=== PATIENT | male | born 1955 | race Caucasian/White ===

== ENCOUNTER 2018-11-15 08:00 | Outpatient (CLI) | payer OTHER ==
--- NOTE | 2018-11-15 08:46 | RAD ---
CHEST TWO VIEWS: HISTORY: Renal calculi. Preoperative exam. COMPARISON: None. FINDINGS: There are sternotomy wires. Normal cardiac silhouette. Pulmonary vessels and hilum are normal. Cos tophrenic angles are clear. No mass. No consolidation. No pneumothorax or osseous abnormalities. IMPRESSION: No acute cardiopulmonary process. POS: [facility]
== END 2018-11-15 08:01 | disposition home or self-care (01) ==
LOC: BICRAD 08:00
PROVIDERS: ATTEND Urology
DX: N20.0 Calculus of kidney (principal)
CPT/HCPCS: 71046

== ENCOUNTER 2020-03-31 19:42 | Observation (INO) | payer OTHER ==
[2020-03-31 21:02] LABS: PTT 25.4 sec (22.9-36.1); Prothrombin Time 13.2 sec (12.0-14.7)
[2020-03-31 21:16] LABS: ALT (SGPT) 13 U/L (8-55); AST (SGOT) 14 U/L (5-34); Albumin 3.7 g/dL (3.4-4.8); Alkaline Phosphatase 61 U/L (40-110); Anion Gap 14 mmol/L (10-20); BUN (Urea Nitrogen) 23 mg/dL (8.4-25.7); Bilirubin, Total 0.6 mg/dL (0.2-1.2); Calc. Creatinine Clearance 0 mL/min (70-130); Carbon Dioxide 23 mmol/L (23-31); Chloride 106 mmol/L (98-107); Estimated GFR-MDRD 74; Globulin 2.7 g/dL (2.4-3.5); Glucose 153 mg/dL (80-115); Lipase 18 U/L (8-78); Protein, Total 6.4 g/dL (5.8-8.1); Sodium 139 mmol/L (136-145)
--- NOTE | 2020-03-31 21:30 | RAD ---
Acute abdominal series INDICATION: Concern for lap band displacement COMPARISON: Abdominal radiograph dated September 18, 2019 FINDINGS: CHEST: LUNGS: Clear. Cardiomediastinal silhouette: There midline sternotomy changes and prior CABG change. Pleural effusion or pneumothorax: Negative. Pneumoperitoneum: Negative. ABDOMEN: Bowel gas pattern: Unobstructed. Abnormal calcifications: There is bilateral nephrolithiasis. The extent of the disease burden appears slightly more pronounced in the right kidney but slightly less pronounced in the left kidney. Osseous structures: There is scattered degenerative and osteoarthritic change present. Additional findings: The laparoscopic gastric band projects in the expected position does not appear appreciably changed in position from the comparison. IMPRESSION: 1. Laparoscopic gastric band projects in expected position and does not appear appreciably changed fr om the comparison study in 2019. 2. Bilateral nephrolithiasis
[2020-03-31] MEDS ORDERED: Morphine 4 MG/ML VIAL ONE (22:09)
[2020-03-31] MEDS ORDERED: Ondansetron PF 4 MG/2 ML Vial IVP PRN (23:20)
[2020-04-01 01:12] VITALS: BMI 32.5
[2020-04-01] MEDS: Sodium Chloride 0.9% 1,000 ML IV SCH ×2 (01:50→10:02)
[2020-04-01 10:44] VITALS: BP 134/83; TEMP 98
[2020-04-01] MEDS ORDERED: Nitroglycerin 0.4 MG TAB (25 Tab Bottle) SL PRN (13:10)
[2020-04-01 14:22] LABS: #Lymphocytes 1.2 thou/uL (1.20-3.40); #Monocytes 0.7 thou/uL (0.11-0.59); #Neutrophils 11.9 thou/uL (1.40-6.50); %Basophils 0.2 % (0.0-1.0); %Eosinophils 0.3 % (0.0-10.0); %Lymphocytes 8.8 % (21.0-51.0); %Monocytes 5.2 % (0.0-10.0); %Neutrophils 85.5 % (42.0-75.0); Hemoglobin 12.6 g/dL (14.0-18.0); Mean Corpuscular HGB CONC 32.8 g/dL (32.0-36.0); Mean Corpuscular Hemoglobin 30.2 pg (27.0-31.0); Mean Corpuscular Volume 91.8 fL (78.0-98.0); Mean Platelet Volume 7.9 fL (7.4-10.4); Platelet Count 183 thou/uL (130-400); RBC Distribution Width 13.1 % (11.5-14.5); Red Blood Cell (RBC) Count 4.17 mill/uL (4.70-6.10)
--- NOTE | 2020-04-01 14:41 | DIS ---
DATE OF ADMISSION: 03/31/2020 DATE OF DISCHARGE: 04/01/2020 DISCHARGE DIAGNOSES: Bariatric status, dysphagia secondary to bariatric status, laparoscopic adjustable band placed in [place] in 2008. See history and physical. PROCEDURE: During this hospitalization, deflation of his port band 4 mL, leaving it empty. DIET: He tolerated his diet well. DISPOSITION: Discharged to home. FOLLOWUP: Postoperative followup with Dr. Archuleta in [place] his Bariatric surgeon or visit our office to assume care locally. Job ID: [id number]
--- NOTE | 2020-04-01 15:31 | HP ---
HISTORY OF PRESENT ILLNESS: Carlito Franco is a 64-year-old male, patient of Bariatric. The patient had a laparoscopic adjustable band placed in [place] by Dr. Archuleta, he estimates in 2008. The patient has not seen in 3.5 years. For the last 8 to 9 months, the patient has been having progressive dysphagia. It worsened, because of COVID concerns, he did not make appointments to see Dr. Archuleta. The patient last few days has not been able to tolerate liquids. He presented to the emergency room last night, was admitted and hydrated. Plain abdominal x-rays reveals his laparoscopic adjustable band to be properly oriented without concerns by these images of slippage or migration. The patient last had an adjustment 3.5 years ago when he saw Dr. Archuleta, has not had an adjustment since that time. Prior to his band, he weighed 325 pounds. He has lost down to 230 pounds, currently 240 pounds, although he estimates his weight at 224. His BMI is 32. ALLERGIES: STATINS. SOCIAL HISTORY: Tobacco. none. He does dip alcohol socially. MEDICATIONS: At home, 1. Metoprolol. 2. CoQ10. 3. Nitroglycerin. 4. Potassium. 5. Multivitamins. 6. Losartan. 7. Zetia. 8. Aspirin. 9. Allopurinol. PAST MEDICAL HISTORY: Gout, hypertension, and coronary artery disease, stable. PAST SURGICAL HISTORY: Coronary artery bypass grafting, 3 vessels, in 2014, Dr. French; bilateral rotator cuffs, 2013 and 2016, Dr. Brunson; urolithiasis lithotripsy, Dr. Mathew Campo, 2015; laparoscopic adjustable band, placed by Dr. Archuleta in [place], 2008. REVIEW OF SYSTEMS: Ten-point noncontributory. FAMILY HISTORY: Noncontributory. PHYSICAL EXAMINATION: VITAL SIGNS: Height 6 feet, weight 240 pounds, BMI 32, temperature 98 degrees, pulse 86, and blood pressure 134/83. GENERAL: The patient is in no acute distress. LUNGS: Clear to auscultation. NEUROLOGICAL: Intact. Brinnon coma scale 15. HEAD, EARS, EYES, NOSE AND THROAT: Unremarkable. Sclerae nonicteric. SKIN: Nonjaundiced. LUNGS: Clear to auscultation. CARDIAC: Regular rate and rhythm. No murmur or gallop. ABDOMEN: Soft and nontender. Band present. Left upper quadrant with palpable port. EXTREMITIES: Unremarkable. LABORATORY DATA: Coagulation studies are normal. Basic metabolic profile is normal. Glucose 153. CBC not obtained and we will order stat per baseline. ASSESSMENT/PLAN: Inability to swallow, probably related to his gastric band. We would recommend deflation of his band, and if he can eat, we would plan discharge home. If he has trouble swallowing afterwards and if this persists, upper endoscopy and abdominal pelvic CAT scan could be considered. If he is able to swallow well, he can follow up with Dr. Archuleta in [place] bariatric surgery or he can solicit our program to assume his care locally. The patient agrees with this plan and consents. PROCEDURE: The patient's laparoscopic adjustable band port was accessed with alcohol prep. Baeza needle accessed it without difficulty and 4 mL removed. The patient was ordered liquids and bariatric regular diet. Job ID: [id number]
[2020-04-01] MEDS ORDERED: Non-Formulary Item 1 EACH (Ubidecarenone [Coq-10] 100 MG) PO SCH (21:00)
[2020-04-01] MEDS ORDERED: Potassium Citrate 1100-334mg/5ml Oral Solution PO SCH (21:00)
[2020-04-01] MEDS ORDERED: Ubidecarenone 50 MG CAP PO SCH (21:00)
[2020-04-02] MEDS ORDERED: Allopurinol 300 MG TAB PO SCH (09:00)
[2020-04-02] MEDS ORDERED: MULTIVITAMIN PO SCH (09:00)
[2020-04-02] MEDS ORDERED: Ezetimibe 10 MG TAB PO SCH (09:00)
[2020-04-02] MEDS ORDERED: Multivit, Therapeutic 1 TAB PO SCH (09:00)
[2020-04-02] MEDS ORDERED: Losartan 25 MG TAB PO SCH (09:00)
[2020-04-02] MEDS ORDERED: Aspirin 81 mg Enteric Coated Tablet PO SCH (09:00)
== END 2020-04-01 15:14 | disposition home or self-care (01) ==
LOC: ERS 19:42 → SURG A 23:31
PROVIDERS: ADMIT Specialist; ATTEND Specialist
DX: K95.09 Other complications of gastric band procedure (principal); R13.10 Dysphagia, unspecified; M10.9 Gout, unspecified; I10 Essential (primary) hypertension; I25.10 Atherosclerotic heart disease of native coronary artery without angina pectoris; Z79.82 Long term (current) use of aspirin; Z79.899 Other long term (current) drug therapy; Z88.8 Allergy status to other drugs, medicaments and biological substances; Z95.1 Presence of aortocoronary bypass graft
CPT/HCPCS: 36415; 74022; 80053; 83690; 84484; 85025; 85610; 85730; 93005; 96361; 96374; 96375; G0378; J2270; J2405

== ENCOUNTER 2020-04-30 09:10 | Outpatient (CLI) | payer OTHER ==
[2020-05-01 11:36] LABS: SARS-CoV-2 MS2 Positive; SARS-CoV-2 N Gene Negative; SARS-CoV-2 S Gene Negative; SARS-CoV-2 by NAA Not Detected (NotDetected); SARS-CoV-2 orf1ab Negative
== END 2020-04-30 09:11 | disposition home or self-care (01) ==
LOC: LABSCS 09:10
DX: Z01.812 Encounter for preprocedural laboratory examination (principal); Z11.59 Encounter for screening for other viral diseases; Z98.84 Bariatric surgery status
CPT/HCPCS: 87635; U0003

== ENCOUNTER 2020-05-03 08:22 | Outpatient (CLI) | payer OTHER ==
--- NOTE | 2020-05-03 09:18 | RAD ---
Upper GI series single column: 05/03/2020 HISTORY: 64-year-old male with abdominal pain. Evaluate LAP-BAND. Dr. De Jesus discussed the findings with the patient immediately after the study. The patient will be give n a disc with images of the study, to take to Dr. Archuleta in [place]. Dr. De Jesus discussed the findings with the patient's primary care physician Dr. Landen Upton, at 9:14 AM , by telephone. TECHNIQUE: Upright administration of thin liquid barium. Prone SAMSON straw administration of thin liquid barium. FINDINGS: LAP-BAND is in satisfactory position at the region of the gastric cardia. There is delayed emptying of the esophagus due to what appears to be a moderately long segment strict ure of the lower esophagus, with irregular margins. No gross abnormality of the stomach is identified on this single column barium study. Duodenal bulb a ppears grossly normal. The second and third stages of the duodenum are grossly unremarkable. IMPRESSION: Distal esophageal stricture suspicious for esophageal cancer.
== END 2020-05-03 08:23 | disposition home or self-care (01) ==
LOC: RAD 08:22
DX: Z46.51 Encounter for fitting and adjustment of gastric lap band (principal); K22.2 Esophageal obstruction
CPT/HCPCS: 74246

== ENCOUNTER 2020-06-06 10:26 | Outpatient (CLI) | payer OTHER ==
--- NOTE | 2020-06-06 14:35 | PET ---
Radionucleotide PET scan with CT attenuation correction HISTORY: Malignant neoplasm of the esophagus. Initial staging. COMPARISON: CT 05/10/2020. FINDINGS: Physiologic uptake of radiotracer is present throughout the enteric system and along each u rinary tract. Uptake associated with a right upper paraesophageal lymph node, measured at 1.[address], show s max SUV 6.2. Lobular vertically oriented hypermetabolic activity associated with the lower esophageal mass shows m ax SUV 17.1. The small lymph nodes just to the right of the lower esophagus on CT imaging show no abnormal uptake on the current PET scan. No other areas of pathologic activity are evident. Nondiagnostic CT attenuation correction images show morphologic findings stable to recent CT scan. IMPRESSION : Large lower esophageal neoplasm with lymph node involvement of a right upper paraesophageal lymph nod e, detailed morphologically on CT from 05/10/2020. No distant metastases.
== END 2020-06-06 10:27 | disposition home or self-care (01) ==
LOC: PET 10:26
PROVIDERS: ATTEND Internal Medicine Hematology & Oncology
DX: C15.5 Malignant neoplasm of lower third of esophagus (principal); C77.1 Secondary and unspecified malignant neoplasm of intrathoracic lymph nodes
CPT/HCPCS: 78815; A9552

== ENCOUNTER 2020-06-11 07:47 | Outpatient (CLI) | payer OTHER ==
[2020-06-11 18:02] LABS: #Eosinphils 0.3 thou/uL (0.0-0.7); #Lymphocytes 1.9 thou/uL (1.20-3.40); #Monocytes 0.7 thou/uL (0.11-0.59); #Neutrophils 7.1 thou/uL (1.40-6.50); %Eosinophils 2.8 % (0.0-10.0); %Monocytes 6.9 % (0.0-10.0); %Neutrophils 71.3 % (42.0-75.0); Hemoglobin 13.2 g/dL (14.0-18.0); Mean Corpuscular HGB CONC 31.5 g/dL (32.0-36.0); Mean Corpuscular Hemoglobin 27.2 pg (27.0-31.0); Mean Corpuscular Volume 86.5 fL (78.0-98.0); Mean Platelet Volume 8.7 fL (7.4-10.4); Platelet Count 253 thou/uL (130-400); RBC Distribution Width 12.9 % (11.5-14.5); Red Blood Cell (RBC) Count 4.85 mill/uL (4.70-6.10); White Blood Cell (WBC) Count 9.9 thou/uL (4.8-10.8)
[2020-06-11 18:58] LABS: Anion Gap 15 mmol/L (10-20); BUN (Urea Nitrogen) 16 mg/dL (8.4-25.7); Calc. Creatinine Clearance 0 mL/min (70-130); Carbon Dioxide 23 mmol/L (23-31); Chloride 108 mmol/L (98-107); Estimated GFR-MDRD 79; Glucose 113 mg/dL (80-115); Potassium 4.4 mmol/L (3.5-5.1); Sodium 142 mmol/L (136-145)
[2020-06-12 13:02] LABS: SARS-CoV-2 MS2 Positive; SARS-CoV-2 N Gene Negative; SARS-CoV-2 S Gene Negative; SARS-CoV-2 by NAA Not Detected (NotDetected); SARS-CoV-2 orf1ab Negative
== END 2020-06-11 07:48 | disposition home or self-care (01) ==
LOC: LABBT 07:47
PROVIDERS: ATTEND Surgery
DX: Z01.812 Encounter for preprocedural laboratory examination (principal); Z20.828 Contact with and (suspected) exposure to other viral communicable diseases; C15.9 Malignant neoplasm of esophagus, unspecified
CPT/HCPCS: 80048; 85025; 87635; U0003

== ENCOUNTER 2020-06-14 06:07 | Day surgery (SDC) | payer OTHER ==
[2020-06-12 11:41] VITALS: BMI 31.8
[2020-06-14] MEDS ORDERED: Ketorolac Tromethamine 30 MG/ML VIAL ONE (06:41)
[2020-06-14] MEDS ORDERED: Acetaminophen 500 MG TAB ONE (06:41)
[2020-06-14] MEDS ORDERED: Bupivacaine 0.25% HCL 30 ML VIAL ONE (08:00)
[2020-06-14] MEDS ORDERED: Lidocaine 2% w/Epinephrine 1:200K 20 ML VIAL ONE (08:00)
[2020-06-14] MEDS ORDERED: Propofol 1,000 MG/100 ML VIAL IV ONE (08:04)
[2020-06-14] MEDS ORDERED: Fentanyl 100 MCG/2 ML VIAL ONE (08:04)
[2020-06-14] MEDS ORDERED: Midazolam HCl 2 mg/2 ml Vial ONE (08:04)
--- NOTE | 2020-06-14 09:30 | RAD ---
RADIOGRAPH CHEST 1 VIEW: DATE: 06/14/2020 HISTORY: MediPort insertion in 64-year-old male FINDINGS: There are no airspace densities, pulmonary edema, pneumothorax, or cardiomegaly. The lateral costophr enic angles are sharp. There is a left subclavian implantable vascular access port with distal tip overlying midline of upper mediastinum. There are sternotomy wires. IMPRESSION: 1. Left subclavian implantable vascular access port distal tip overlying expected region of confluenc e of bilateral brachiocephalic veins. 2. Signs of previous open-heart surgery. 3. No pneumothorax. 4. No acute cardiopulmonary findings.
[2020-06-14] MEDS ORDERED: PROPOFOL 200 MG/20 ML VIAL ONE (12:12)
[2020-06-14] MEDS ORDERED: Dexamethasone 20 MG/5 ML VIAL ONE (12:12)
[2020-06-14] MEDS ORDERED: Ondansetron PF 4 MG/2 ML Vial ONE (12:12)
--- NOTE | 2020-06-20 14:58 | PDOC.OP ---
Operative Note - Operative Note Operative Note: PROCEDURE: Right subclavian MediPort placement with fluoroscopic guidance DATE OF PROCEDURE: 06/14/2020 SURGEON: Ted Romero M.D. PREOPERATIVE DIAGNOSIS: Esophageal cancer POSTOPERATIVE DIAGNOSIS: Esophageal cancer HISTORY: Patient has been diagnosed with esophageal cancer. Chemotherapy has been recommended and a Mediport has been requested for this. OPERATIVE PROCEDURE IN DETAIL: After informed consent was obtained and appropriate preoperative antibiotics administered, the patient was taken to the operating room and placed in supine position and monitored anesthesia care was administered. The patient was then placed in Trendelenburg position and the left subclavian vein accessed easily on the first attempt with excellent flow of dark venous non-pulsatile blood. A wire threaded easily and was confirmed to be in the superior vena cava by fluoroscopy. Additional local anesthesia was infused to the skin and subcutaneous tissues lateral and inferior to the access site. The skin incision was extended from the wire laterally and a subcutaneous pocket developed inferiorly. A Mediport was obtained and confirmed to fit in the subcutaneous pocket. This was secured inferiorly to the pectoralis fascia with a Prolene suture, which was clamped, but not tied. The dilator and sheath were then placed over the wire and the dilator and wire removed leaving the sheath in place. The clamped MediPort tubing was tunneled through the sheath, which was then split and removed leaving the MediPort tubing in place. The tubing was adjusted until the tip was confirmed by fluoroscopy to be in the superior vena cava just above the atrium. The tubing was clamped at the skin level and cut and the tubing secured to the port, which was then placed in the subcutaneous pocket. The previously placed suture was secured and two additional sutures w ere placed to fix the port in place within the pocket. The port was aspirated with the Baeza needle and had excellent flow of dark venous non-pulsatile blood and easily flushed without resistance. The subcutaneous tissues were closed with a running Monocryl suture, following which the skin was closed with a running subcuticular Monocryl suture. Dermabond dressings were placed and the hub was again accessed through the skin and confirmed to easily aspirate and easily flush. The course of the catheter was confirmed by fluoroscopy to be smooth with the tip appropriately located in the superior vena cava. The patient was taken back to the day stay unit in good condition. Estimated blood loss was minimal. There were no complications. There were no specimens.
== END 2020-06-14 10:05 | disposition home or self-care (01) ==
LOC: SDC 06:07
PROVIDERS: ATTEND Surgery
DX: C15.5 Malignant neoplasm of lower third of esophagus (principal); C77.1 Secondary and unspecified malignant neoplasm of intrathoracic lymph nodes; I25.10 Atherosclerotic heart disease of native coronary artery without angina pectoris; F17.220 Nicotine dependence, chewing tobacco, uncomplicated; M10.9 Gout, unspecified; I11.9 Hypertensive heart disease without heart failure; Z79.82 Long term (current) use of aspirin; Z79.899 Other long term (current) drug therapy; Z88.8 Allergy status to other drugs, medicaments and biological substances; Z95.1 Presence of aortocoronary bypass graft; Z98.84 Bariatric surgery status
CPT/HCPCS: 71045; C1788; J0690; J1100; J1642; J1885; J2250; J2405; J2704; J3010; S0020

== ENCOUNTER 2020-09-06 08:45 | Outpatient (CLI) | payer MEDICARE, OTHER ==
--- NOTE | 2020-09-06 10:41 | PET ---
Nuclear medicine FDG PET/CT: (Positron emission tomography and computed tomography) DATE: 09/06/2020 HISTORY: 64-year-old male with malignant neoplasm of overlapping sites of esophagus. Restaging. Evaluate respo nse to treatment. COMPARISON: 06/06/2020 TECHNIQUE: IV injection of F-18 fluorodeoxyglucose (FDG) dose: 13.3 mCi. PET scan and attenuation correction CT performed from skull base to proximal thighs. FINDINGS: SUV (standard uptake values) numbers given are maximum SUVs. QCLR used. At right tracheoesophageal groove, there was a far upper posterior mediastinal lymph node with prior SUV of 6.2. Current SUV of 2.6. The lower esophageal tumor with prior greatest SUV of 17.1 located approximately 10 cm superior to th e EG junction, now SUV 2.9; A few centimeters superior to EG junction prior SUV of 11.2 ; current SUV 2.5. Currently, no other enlarged or hypermetabolic paraesophageal posterior mediastinal lymph nodes ident ified. No mediastinal or hilar lymphadenopathy identified anywhere. No metastatic lesions in the liver or anywhere else in the abdominal cavity, pelvic cavity, or neck. Left-sided ileostomy tube. IMPRESSION: Significant interval response to treatment. Current SUV at lower threshold or minimally above the thr eshold.
== END 2020-09-06 08:46 | disposition home or self-care (01) ==
LOC: PET 08:45
PROVIDERS: ATTEND Internal Medicine Hematology & Oncology
DX: C15.8 Malignant neoplasm of overlapping sites of esophagus (principal)
CPT/HCPCS: 78815; A9552

== ENCOUNTER 2021-07-22 08:51 | Outpatient (CLI) | payer MEDICARE | END 2021-07-22 08:52 | disposition home or self-care (01) | LOC: PET 08:51 | PROVIDERS: ATTEND Internal Medicine Hematology & Oncology | DX: C15.8 Malignant neoplasm of overlapping sites of esophagus (principal); C78.7 Secondary malignant neoplasm of liver and intrahepatic bile duct | CPT/HCPCS: 78815; A9552 ==

== ENCOUNTER 2021-08-04 19:30 | Inpatient (IN) | payer MEDICARE ==
[~2021-08-04 19:30] MED LIST: Iopamidol-370 76% 500 ML 1 ML ONE
[2021-08-04 20:21] LABS: #Eosinphils 0.1 thou/uL (0.0-0.7); #Lymphocytes 0.8 thou/uL (1.20-3.40); #Monocytes 0.5 thou/uL (0.11-0.59); #Neutrophils 4.1 thou/uL (1.40-6.50); %Basophils 0.1 % (0.0-1.0); %Eosinophils 2.2 % (0.0-10.0); %Lymphocytes 14.1 % (21.0-51.0); %Monocytes 8.9 % (0.0-10.0); %Neutrophils 74.7 % (42.0-75.0); Hemoglobin 11.8 g/dL (14.0-18.0); Mean Corpuscular HGB CONC 33.8 g/dL (32.0-36.0); Mean Corpuscular Hemoglobin 32.6 pg (27.0-31.0); Mean Corpuscular Volume 96.2 fL (78.0-98.0); Mean Platelet Volume 9.6 fL (7.4-10.4); Platelet Count 123 thou/uL (130-400); Red Blood Cell (RBC) Count 3.61 mill/uL (4.70-6.10); White Blood Cell (WBC) Count 5.4 thou/uL (4.8-10.8)
[2021-08-04 20:33] LABS: INR-International Normal Ratio 1.1; Prothrombin Time 14.2 sec (12.0-14.7)
[2021-08-04 20:34] LABS: PTT 26.5 sec (22.9-36.1)
[2021-08-04 20:36] LABS: ALT (SGPT) 33 U/L (8-55); AST (SGOT) 49 U/L (5-34); Albumin 3.7 g/dL (3.4-4.8); Alkaline Phosphatase 103 U/L (40-110); Anion Gap 15 mmol/L (10-20); BUN (Urea Nitrogen) 18 mg/dL (8.4-25.7); Bilirubin, Total 0.4 mg/dL (0.2-1.2); Calc. Creatinine Clearance 0 mL/min (70-130); Carbon Dioxide 22 mmol/L (23-31); Chloride 108 mmol/L (98-107); Globulin 2.6 g/dL (2.4-3.5); Glucose 173 mg/dL (80-115); Potassium 4.1 mmol/L (3.5-5.1); Protein, Total 6.3 g/dL (5.8-8.1); Sodium 141 mmol/L (136-145)
[2021-08-04] MEDS ORDERED: Fentanyl 100 MCG/2 ML VIAL ONE (20:36)
[2021-08-04] MEDS ORDERED: Ondansetron ODT 4 MG TAB PO PRN (20:42)
[2021-08-04] MEDS ORDERED: Promethazine HCl 25 MG/ML VIAL IM PRN (20:42)
[2021-08-04] MEDS ORDERED: Ondansetron PF 4 MG/2 ML Vial IVP PRN (20:42)
[2021-08-04] MEDS ORDERED: Morphine 4 MG/ML VIAL SLOW IVP PRN (20:47)
[2021-08-04] MEDS ORDERED: Sodium Chloride 0.9% 1,000 ML IV SCH (21:00)
[2021-08-04] MEDS ORDERED: Bacitracin 1 PK ONE ×2 (21:16→21:47)
[2021-08-04] MEDS ORDERED: HUM PROTHROMBIN CPLX(PCC)4FACT 1,000 UNIT, Human Prothrombin Complx(PCC) 500 UNIT in Ad... IV SCH (23:00)
[2021-08-04] MEDS ORDERED: Hydrocortisone Sod Succ/PF 100 mg/2 ml Vial IVP SCH (23:15)
[2021-08-04 23:16] LABS: Troponin I 0.038 ng/mL (< 0.028)
[2021-08-04] MEDS: Sodium Chloride 0.9% 1,000 ML IV SCH (23:28)
[2021-08-04] MEDS ORDERED: Calcium Chloride 1 GM/10 ML Abboject SYRINGE IVP SCH (23:30)
[2021-08-04 23:37] LABS: Bacteria/HPF None Seen HPF (None Seen); Bilirubin Negative (Negative); Blood, Urine 3+ (Negative); Clarity Turbid (Clear); Glucose, Urine (Dipstick) Normal (Negative); Ketone, Urine Negative (Negative); Leukocyte Negative Leu/uL (Negative); Nitrite Negative (Negative); Protein, Urine (Dipstick) 30 mg/dL (Neg-Trace); RBC/HPF Greater than 50 HPF (0-3); Specific Gravity, Urine 1.029 (1.002-1.036); Squamous Epithelial 0-3 HPF (0-3); Urobilinogen Normal mg/dL (Less than 2); WBC/HPF Greater than 50 HPF (0-3)
[2021-08-04] MEDS ORDERED: Acetaminophen 325 MG TAB PO SCH (23:59)
[2021-08-05] MEDS: traMADol HCl 50 MG TAB PO PRN ×2 (02:47→08:45)
[2021-08-05] MEDS ORDERED: Calcium Chloride 1 GM/10 ML Abboject SYRINGE ONE (02:51)
[2021-08-05 03:31] LABS: #Lymphocytes 0.5 thou/uL (1.20-3.40); #Monocytes 0.8 thou/uL (0.11-0.59); #Neutrophils 5.1 thou/uL (1.40-6.50); %Eosinophils 0.2 % (0.0-10.0); %Lymphocytes 7.2 % (21.0-51.0); %Monocytes 12.5 % (0.0-10.0); %Neutrophils 80.1 % (42.0-75.0); Hemoglobin 10.6 g/dL (14.0-18.0); Mean Corpuscular HGB CONC 33.6 g/dL (32.0-36.0); Mean Corpuscular Hemoglobin 31.3 pg (27.0-31.0); Mean Corpuscular Volume 93.1 fL (78.0-98.0); Mean Platelet Volume 9.9 fL (7.4-10.4); Platelet Count 86 thou/uL (130-400); Red Blood Cell (RBC) Count 3.37 mill/uL (4.70-6.10); White Blood Cell (WBC) Count 6.4 thou/uL (4.8-10.8)
[2021-08-05 03:46] LABS: Lactic Acid 1.2 mmol/L (0.5-2.2)
[2021-08-05 03:50] LABS: Anion Gap 11 mmol/L (10-20); BUN (Urea Nitrogen) 15 mg/dL (8.4-25.7); Calc. Creatinine Clearance 106 mL/min (70-130); Carbon Dioxide 19 mmol/L (23-31); Chloride 113 mmol/L (98-107); Glucose 141 mg/dL (80-115); Sodium 139 mmol/L (136-145)
[2021-08-05 03:51] LABS: ALT (SGPT) 28 U/L (8-55); AST (SGOT) 43 U/L (5-34); Alkaline Phosphatase 78 U/L (40-110); Bilirubin, Direct 0.3 mg/dL (0.1-0.3); Bilirubin, Total 0.6 mg/dL (0.2-1.2); CK (CPK) 470 U/L (30-200); Protein, Total 5.3 g/dL (5.8-8.1)
[2021-08-05] MEDS ORDERED: Hydrocortisone Sod Succ/PF 100 mg/2 ml Vial IVP SCH (06:00)
[2021-08-05 07:02] LABS: Magnesium 1.6 mg/dL (1.6-2.6)
[2021-08-05 07:02] LABS: Troponin I 0.041 ng/mL (< 0.028)
[2021-08-05] MEDS: Sodium Chloride 0.9% 1,000 ML IV SCH (07:19)
[2021-08-05] MEDS ORDERED: Potassium Phosphate 15 MMOL, Magnesium Sulfate 2 GM in Sodium Chloride 0.9% 250 ML 250 ML IVPB SCH (08:00)
[2021-08-05] MEDS ORDERED: Magnesium 2 GM/50 ML 2 GM in Premix Bag 1 BAG IVPB SCH (08:00)
[2021-08-05] MEDS: Acetaminophen 325 MG TAB PO SCH ×3 (08:44→20:47)
[2021-08-05] MEDS: Famotidine/PF 20 mg/2ml Vial SLOW IVP SCH ×2 (08:45→20:49)
[2021-08-05] MEDS: Potassium Citrate 1100-334mg/5ml Oral Solution PO SCH ×2 (08:45→21:38)
[2021-08-05] MEDS ORDERED: TUMERIC PO SCH (09:00)
[2021-08-05] MEDS: Senokot S 8.6-50 MG TAB PO SCH ×2 (20:47→21:39)
[2021-08-05] MEDS: Acetaminophen/Codeine 30-300mg Tablet PO PRN (20:48)
[2021-08-06] MEDS: Acetaminophen/Codeine 30-300mg Tablet PO PRN (04:17)
[2021-08-06] MEDS: Acetaminophen 325 MG TAB PO SCH ×3 (04:18→14:05)
[2021-08-06 06:05] VITALS: BMI 27.7
[2021-08-06 06:12] LABS: Band 1 % (5-11); Eosinophils 7 % (0-10); Hemoglobin 9.1 g/dL (14.0-18.0); Lymphocytes 18 % (21-51); MDiff Complete? YES; Mean Corpuscular HGB CONC 35.5 g/dL (32.0-36.0); Mean Corpuscular Hemoglobin 32.7 pg (27.0-31.0); Mean Platelet Volume 9.2 fL (7.4-10.4); Monocytes 17 % (0-10); Neutrophil 55 % (42-75); Platelet Count 73 thou/uL (130-400); Platelet Morphology Comment Appears Decreased; RBC Distribution Width 18.1 % (11.5-14.5); Red Blood Cell (RBC) Count 2.79 mill/uL (4.70-6.10); White Blood Cell (WBC) Count 3.2 thou/uL (4.8-10.8)
[2021-08-06 06:17] LABS: Anion Gap 11 mmol/L (10-20); BUN (Urea Nitrogen) 15 mg/dL (8.4-25.7); Calc. Creatinine Clearance 107 mL/min (70-130); Calcium 8.8 mg/dL (7.8-10.44); Carbon Dioxide 23 mmol/L (23-31); Chloride 108 mmol/L (98-107); Glucose 126 mg/dL (80-115); Magnesium 1.9 mg/dL (1.6-2.6); Phosphorus 2.4 mg/dL (2.3-4.7); Potassium 4.1 mmol/L (3.5-5.1); Sodium 138 mmol/L (136-145)
[2021-08-06] MEDS: Senokot S 8.6-50 MG TAB PO SCH (08:46)
[2021-08-06] MEDS: Famotidine/PF 20 mg/2ml Vial SLOW IVP SCH (08:47)
[2021-08-06] MEDS: Potassium Citrate 1100-334mg/5ml Oral Solution PO SCH ×2 (08:47→08:51)
[2021-08-06] MEDS ORDERED: Polyethylene Glycol 3350 17 GM Packet PO SCH (09:00)
[2021-08-06] MEDS ORDERED: Bacitracin 1 PK TOP SCH (09:00)
[2021-08-06] MEDS ORDERED: Gabapentin 300 MG CAP PO SCH ×2 (09:45→15:00)
[2021-08-06] MEDS ORDERED: Acetaminophen/Codeine 30-300mg Tablet PO SCH ×2 (09:45→12:00)
[2021-08-06 12:09] VITALS: BP 125/88; TEMP 98.6
== END 2021-08-06 15:55 | disposition home or self-care (01) | DRG 964 ==
LOC: ERS 19:30 → ERHOLD 20:45 → CCU 08-05 01:59 → SURG B 08-05 14:40
PROVIDERS: ADMIT Specialist; ATTEND Surgery
PROC: 30283B1 Transfusion of Nonautologous 4-Factor Prothrombin Complex Concentrate into Vein, Percutaneous Approach (ICD-10-PCS; principal; 2021-08-04)
PROC: 30233N1 Transfusion of Nonautologous Red Blood Cells into Peripheral Vein, Percutaneous Approach (ICD-10-PCS; 2021-08-04)
DX: S06.5X9A Traumatic subdural hemorrhage with loss of consciousness of unspecified duration, initial encounter (principal); S22.42XA Multiple fractures of ribs, left side, initial encounter for closed fracture; S27.0XXA Traumatic pneumothorax, initial encounter; S27.321A Contusion of lung, unilateral, initial encounter; C15.9 Malignant neoplasm of esophagus, unspecified; C78.7 Secondary malignant neoplasm of liver and intrahepatic bile duct; T79.6XXA Traumatic ischemia of muscle, initial encounter; I48.0 Paroxysmal atrial fibrillation; M10.9 Gout, unspecified; I48.91 Unspecified atrial fibrillation; S50.812A Abrasion of left forearm, initial encounter; S40.212A Abrasion of left shoulder, initial encounter; S00.01XA Abrasion of scalp, initial encounter; S02.19XA Other fracture of base of skull, initial encounter for closed fracture; W05.1XXA Fall from non-moving nonmotorized scooter, initial encounter; S02.40FA Zygomatic fracture, left side, initial encounter for closed fracture; S42.032A Displaced fracture of lateral end of left clavicle, initial encounter for closed fracture; R40.2362 Coma scale, best motor response, obeys commands, at arrival to emergency department; R40.2142 Coma scale, eyes open, spontaneous, at arrival to emergency department; R40.2252 Coma scale, best verbal response, oriented, at arrival to emergency department; E83.42 Hypomagnesemia; Z95.1 Presence of aortocoronary bypass graft; Z79.01 Long term (current) use of anticoagulants; Z88.8 Allergy status to other drugs, medicaments and biological substances; Z79.899 Other long term (current) drug therapy
CPT/HCPCS: 36415; 36430; 70450; 70486; 71045; 71260; 72125; 74177; 80048; 80053; 80076; 81003; 81015; 82533; 82550; 83605; 83735; 84100; 84484; 85025; 85610; 85730; 86850; 86900; 86901; 93005; 93306; 96374; 96375; J1720; J3010; J3475; J7050; P9016; Q9967; S0028

== ENCOUNTER 2021-08-19 11:19 | Outpatient (CLI) | payer MEDICARE | END 2021-08-19 11:20 | disposition home or self-care (01) | LOC: CT 11:19 | PROVIDERS: ATTEND Neurological Surgery | DX: S06.5X9A Traumatic subdural hemorrhage with loss of consciousness of unspecified duration, initial encounter (principal) | CPT/HCPCS: 70450 ==

== ENCOUNTER → 2021-11-04 | Outpatient (CLI) | payer MEDICARE | LOC: PET 11:00 | PROVIDERS: ATTEND Internal Medicine Hematology & Oncology | DX: C15.8 Malignant neoplasm of overlapping sites of esophagus (principal); C78.7 Secondary malignant neoplasm of liver and intrahepatic bile duct; N20.0 Calculus of kidney | CPT/HCPCS: 78815; A9552 ==

== ENCOUNTER 2021-11-12 09:48 | Outpatient (CLI) | payer MEDICARE ==
[2021-11-12] MEDS ORDERED: Iopamidol 370 76% 100 ML VIAL ONE (10:36)
[2021-11-12] MEDS ORDERED: Iopamidol 370 76% 50 ML VIAL FS ONE (10:36)
== END 2021-11-12 09:49 | disposition home or self-care (01) ==
LOC: CT 09:48
PROVIDERS: ATTEND Internal Medicine Hematology & Oncology
DX: C15.8 Malignant neoplasm of overlapping sites of esophagus (principal); C78.7 Secondary malignant neoplasm of liver and intrahepatic bile duct; N20.0 Calculus of kidney
CPT/HCPCS: 74160

== ENCOUNTER 2022-02-06 10:25 | Inpatient (IN) | payer MEDICARE ==
[2022-02-06 11:55] LABS: #Lymphocytes 0.4 thou/uL (1.20-3.40); #Monocytes 0.1 thou/uL (0.11-0.59); #Neutrophils 9.6 thou/uL (1.40-6.50); %Basophils 0.2 % (0.0-1.0); %Eosinophils 0.2 % (0.0-10.0); %Lymphocytes 3.6 % (21.0-51.0); %Monocytes 0.7 % (0.0-10.0); %Neutrophils 95.4 % (42.0-75.0); Mean Corpuscular HGB CONC 31.5 g/dL (32.0-36.0); Mean Platelet Volume 8.5 fL (7.4-10.4); Platelet Count 172 thou/uL (130-400); RBC Distribution Width 16.7 % (11.5-14.5); Red Blood Cell (RBC) Count 3.79 mill/uL (4.70-6.10)
[2022-02-06 12:18] LABS: ALT (SGPT) 148 U/L (8-55); AST (SGOT) 714 U/L (5-34); Albumin 2.8 g/dL (3.4-4.8); Alkaline Phosphatase 728 U/L (40-110); Anion Gap 29 mmol/L (10-20); BUN (Urea Nitrogen) 87 mg/dL (8.4-25.7); Bilirubin, Total 2.8 mg/dL (0.2-1.2); CK (CPK) 669 U/L (30-200); Calc. Creatinine Clearance 0 mL/min (70-130); Calcium 7.8 mg/dL (7.8-10.44); Carbon Dioxide 18 mmol/L (23-31); Chloride 81 mmol/L (98-107); Globulin 2.9 g/dL (2.4-3.5); Glucose 144 mg/dL (80-115); Lipase 225 U/L (8-78); Potassium 6.5 mmol/L (3.5-5.1); Protein, Total 5.7 g/dL (5.8-8.1); Sodium 121 mmol/L (136-145)
[2022-02-06] MEDS ORDERED: HYDROcodone/Acetaminophen 10/325 mg Tablet ONE (12:42)
[2022-02-06] MEDS ORDERED: Calcium Chloride 1 GM/10 ML Abboject SYRINGE ONE (13:40)
[2022-02-06] MEDS ORDERED: Sodium Bicarb 50 MEQ/50 ML Abboject 8.4% SYRINGE ONE (13:40)
[2022-02-06] MEDS ORDERED: Dextrose 5% in Water 1,000 ML IV PRN (14:33)
[2022-02-06] MEDS ORDERED: Dextrose 50% Abboject 50 ML SYRINGE SLOW IVP PRN (14:33)
[2022-02-06] MEDS ORDERED: Insulin Regular 300 UNITS/3 ML VIAL SC PRN (14:33)
[2022-02-06] MEDS ORDERED: Ondansetron PF 4 MG/2 ML Vial IVP PRN (14:33)
[2022-02-06] MEDS ORDERED: Polyethylene Glycol 3350 17 GM Packet PO PRN (14:49)
[2022-02-06] MEDS ORDERED: Morphine 4 MG/ML VIAL SLOW IVP PRN (14:50)
[2022-02-06] MEDS ORDERED: Insulin Regular 300 UNITS/3 ML VIAL ONE (14:57)
[2022-02-06 17:07] VITALS: BMI 29.0
[2022-02-06] MEDS: Sodium Bicarbonate 150 MEQ in Dextrose 5% in Water 1,000 ML IV SCH (17:44)
[2022-02-06] MEDS: Gabapentin 300 MG CAP PO SCH (20:19)
[2022-02-06 20:42] LABS: Hemoglobin 10.8 g/dL (14.0-18.0); Mean Corpuscular HGB CONC 32.1 g/dL (32.0-36.0); Mean Corpuscular Hemoglobin 29.5 pg (27.0-31.0); Mean Corpuscular Volume 91.7 fL (78.0-98.0); Mean Platelet Volume 8.4 fL (7.4-10.4); Platelet Count 148 thou/uL (130-400); RBC Distribution Width 16.7 % (11.5-14.5); Red Blood Cell (RBC) Count 3.66 mill/uL (4.70-6.10); White Blood Cell (WBC) Count 10.6 thou/uL (4.8-10.8)
[2022-02-06 20:49] LABS: INR-International Normal Ratio 2.3; Prothrombin Time 25.4 sec (12.0-14.7)
[2022-02-06 20:57] LABS: Band 5 % (5-11); Lymphocytes 1 % (21-51); MDiff Complete? YES; Metamyelocyte 1 % (0-0); Monocytes 1 % (0-10); Neutrophil 92 % (42-75)
[2022-02-06 21:03] LABS: ALT (SGPT) 153 U/L (8-55); AST (SGOT) 750 U/L (5-34); Albumin 2.7 g/dL (3.4-4.8); Alkaline Phosphatase 688 U/L (40-110); Anion Gap 26 mmol/L (10-20); BUN (Urea Nitrogen) 91 mg/dL (8.4-25.7); Bilirubin, Total 2.7 mg/dL (0.2-1.2); Calc. Creatinine Clearance 21 mL/min (70-130); Calcium 7.5 mg/dL (7.8-10.44); Carbon Dioxide 21 mmol/L (23-31); Chloride 81 mmol/L (98-107); Globulin 2.9 g/dL (2.4-3.5); Glucose 165 mg/dL (80-115); Potassium 6.4 mmol/L (3.5-5.1); Protein, Total 5.6 g/dL (5.8-8.1); Sodium 122 mmol/L (136-145)
[2022-02-06 23:36] LABS: Bilirubin Negative (Negative); Blood, Urine 3+ (Negative); Clarity Turbid (Clear); Glucose, Urine (Dipstick) 30 mg/dL (Negative); Ketone, Urine Negative (Negative); Leukocyte 25 Leu/uL (Negative); Nitrite Negative (Negative); Protein, Urine (Dipstick) 30 mg/dL (Neg-Trace); RBC/HPF Greater than 50 HPF (0-3); Specific Gravity, Urine 1.016 (1.002-1.036); Squamous Epithelial 0-3 HPF (0-3)
[2022-02-06 23:37] LABS: Bacteria/HPF Rare-Few HPF (None Seen)
[2022-02-07 00:43] LABS: Lactic Acid 4.5 mmol/L (0.5-2.2)
[2022-02-07] MEDS: Sodium Bicarbonate 150 MEQ in Dextrose 5% in Water 1,000 ML IV SCH ×3 (01:47→09:52)
[2022-02-07] MEDS ORDERED: CALCIUM GLUC 1GM/NS 50ML 1 GM in Premix Bag 1 BAG IVPB SCH (02:00)
[2022-02-07] MEDS ORDERED: Dextrose 50% Abboject 50 ML SYRINGE SLOW IVP SCH (02:00)
[2022-02-07] MEDS ORDERED: SODIUM BICARBONATE IV SCH (02:00)
[2022-02-07] MEDS ORDERED: CALCIUM GLUC 1GM/NS 50ML 4.6 GM in Premix Bag 1 BAG IVPB SCH (02:00)
[2022-02-07] MEDS ORDERED: WATER IV SCH (02:00)
[2022-02-07] MEDS ORDERED: Insulin Regular 300 UNITS/3 ML VIAL IVP SCH (02:00)
[2022-02-07] MEDS ORDERED: DEXTROSE 5% IV SCH (02:00)
[2022-02-07] MEDS ORDERED: Furosemide 40 MG/4 ML VIAL SLOW IVP SCH (02:00)
[2022-02-07] MEDS ORDERED: Dextrose 10% in Water 250 ML IVPB SCH (02:30)
[2022-02-07 04:44] LABS: Hemoglobin 10.6 g/dL (14.0-18.0); Mean Corpuscular Hemoglobin 29.4 pg (27.0-31.0); Mean Corpuscular Volume 91.9 fL (78.0-98.0); Mean Platelet Volume 8.3 fL (7.4-10.4); Platelet Count 137 thou/uL (130-400); RBC Distribution Width 16.9 % (11.5-14.5); Red Blood Cell (RBC) Count 3.61 mill/uL (4.70-6.10); White Blood Cell (WBC) Count 10.6 thou/uL (4.8-10.8)
[2022-02-07 05:08] LABS: Band 10 % (5-11); MDiff Complete? YES; Monocytes 1 % (0-10); Neutrophil 89 % (42-75)
[2022-02-07 05:14] LABS: ALT (SGPT) 151 U/L (8-55); AST (SGOT) 724 U/L (5-34); Albumin 2.7 g/dL (3.4-4.8); Alkaline Phosphatase 663 U/L (40-110); Anion Gap 24 mmol/L (10-20); BUN (Urea Nitrogen) 94 mg/dL (8.4-25.7); Bilirubin, Total 2.7 mg/dL (0.2-1.2); Calc. Creatinine Clearance 21 mL/min (70-130); Calcium 7.6 mg/dL (7.8-10.44); Carbon Dioxide 22 mmol/L (23-31); Chloride 80 mmol/L (98-107); Globulin 2.8 g/dL (2.4-3.5); Glucose 149 mg/dL (80-115); Potassium 6.1 mmol/L (3.5-5.1); Protein, Total 5.5 g/dL (5.8-8.1); Sodium 120 mmol/L (136-145)
[2022-02-07] MEDS: Gabapentin 300 MG CAP PO SCH (09:51)
[2022-02-07 12:05] VITALS: BP 99/63; TEMP 97.5
[2022-02-07 16:12] LABS: SARS-CoV-2 PCR by NAA Not Detected (NotDetected)
== END 2022-02-07 12:30 | disposition hospice, home (50) | DRG 683 ==
LOC: ERS 10:25 → 2NO 14:12
PROVIDERS: ADMIT Internal Medicine; ATTEND Internal Medicine
DX: N17.9 Acute kidney failure, unspecified (principal); Z51.5 Encounter for palliative care; Z66 Do not resuscitate; Z20.822 Contact with and (suspected) exposure to COVID-19; E87.1 Hypo-osmolality and hyponatremia; E87.2 Acidosis; C15.9 Malignant neoplasm of esophagus, unspecified; C78.89 Secondary malignant neoplasm of other digestive organs; E87.5 Hyperkalemia; E88.09 Other disorders of plasma-protein metabolism, not elsewhere classified; R77.8 Other specified abnormalities of plasma proteins; E78.5 Hyperlipidemia, unspecified; E03.9 Hypothyroidism, unspecified; I48.91 Unspecified atrial fibrillation; I25.10 Atherosclerotic heart disease of native coronary artery without angina pectoris; Z95.1 Presence of aortocoronary bypass graft; Z90.49 Acquired absence of other specified parts of digestive tract; Z92.3 Personal history of irradiation; Z92.21 Personal history of antineoplastic chemotherapy; Z79.899 Other long term (current) drug therapy; Z98.84 Bariatric surgery status
CPT/HCPCS: 36416; 71045; 76770; 80053; 81001; 82550; 83605; 83690; 83880; 84484; 85025; 85610; 93005; 93306; 93970; J0610; J1815; J1940; J2270; J7070; U0003; U0005